=== PATIENT | female | born 1985 | race Caucasian/White ===

== ENCOUNTER → 2017-05-19 | Outpatient (CLI) | payer OTHER | LOC: M LRY 19:32 | DX: M79.671 Pain in right foot (principal) | CPT/HCPCS: 73630; G0463 ==

== ENCOUNTER → 2019-02-03 | Outpatient (CLI) | payer OTHER ==
--- NOTE | 2019-02-03 13:58 | REP ---
Clinical: Cough . Comparison: None . Technique: PA and lateral. Findings: The mediastinum and cardiac silhouette are normal. The lung marrero are clear and without acute consolidation, effusion, or pneumothorax. The skeletal structures are intact and normal. Impression: 1. No acute cardiopulmonary process. Electronically Signed by Óscar Klein MD 02/03/2019 01:49 P
== END ==
LOC: M LRY 13:39
PROVIDERS: ATTEND Nurse Practitioner Family
DX: R05 Cough (principal)
CPT/HCPCS: 71046; G0463